=== PATIENT | female | born 1965 | race Caucasian/White ===

== ENCOUNTER → 2017-03-24 | Outpatient (CLI) | payer OTHER | LOC: RAD 02:04 | DX: Z12.31 Encounter for screening mammogram for malignant neoplasm of breast (principal) ==

== ENCOUNTER → 2017-04-26 | Outpatient (CLI) | payer OTHER | LOC: ULTRA 11:16 | DX: E04.1 Nontoxic single thyroid nodule (principal) ==

== ENCOUNTER → 2018-05-05 | Outpatient (CLI) | payer BC | LOC: RAD 09:33 | DX: Z12.31 Encounter for screening mammogram for malignant neoplasm of breast (principal) ==

== ENCOUNTER → 2019-07-20 | Outpatient (CLI) | payer BC | LOC: RAD 08:07 | PROVIDERS: ATTEND Obstetrics & Gynecology | DX: Z12.31 Encounter for screening mammogram for malignant neoplasm of breast (principal) ==

== ENCOUNTER → 2019-12-28 | Outpatient (CLI) | payer BC | LOC: RAD 14:34 | PROVIDERS: ATTEND Otolaryngology | DX: J98.4 Other disorders of lung (principal) ==

== ENCOUNTER → 2020-08-19 | Outpatient (CLI) | payer BC | LOC: RAD 13:46 | PROVIDERS: ATTEND Obstetrics & Gynecology | DX: Z12.31 Encounter for screening mammogram for malignant neoplasm of breast (principal) ==

== ENCOUNTER → 2020-08-23 | Outpatient (CLI) | payer BC | LOC: ULTRA 09:39 → RAD 10:36 → ULTRA 10:36 | PROVIDERS: ATTEND Obstetrics & Gynecology | DX: N63.10 Unspecified lump in the right breast, unspecified quadrant (principal); N63.20 Unspecified lump in the left breast, unspecified quadrant; R92.2 Inconclusive mammogram ==